=== PATIENT | male | born 1990 | race Two or more races ===

== ENCOUNTER 2017-04-03 01:19 | Emergency (ER) | payer SELFPAY ==
[2017-04-03 01:34] VITALS: BP 126/80
[2017-04-03] MEDS ORDERED: diphenhydrAMINE 25 MG Tab PO ONE (02:38)
--- NOTE | 2017-04-03 02:41 | EDM.PDOC ---
ED HPI GENERAL MEDICAL PROBLEM - General Chief Complaint: Eye Problems Stated Complaint: FACE AND EYES SWOLLEN [id number] Time Seen by Provider: 04/03/17 02:35 Source of Information: Reports: Patient History Limitations: Reports: No Limitations - History of Present Illness INITIAL COMMENTS - FREE TEXT/NARRATIVE: C/O eyes and face itching after home from being at [employer]. Denies other symptoms. 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 Constitutional: Reports: No Symptoms HEENT: Reports: Eye Pain (itching) Respiratory: Reports: No Symptoms Cardiovascular: Reports: No Symptoms GI/Abdominal: Reports: No Symptoms Skin: Reports: Pruritis (face and eyes) Neurological: Reports: No Symptoms ED EXAM GENERAL W FULL EYE - Physical Exam Exam: See Below Exam Limited By: No Limitations General Appearance: Alert, No Apparent Distress Eye Exam: Bilateral Eye: EOMI, PERRL Eyelids: Bilateral: Normal Appearance Conjunctiva & Sclera: Bilateral: Injected (mild) Extraocular Movements: Bilateral: Intact Pupils: Normal Accommodation Pupillary Size: Bilateral: 4 mm Ears: Normal External Exam Nose: Normal Inspection Throat/Mouth: Normal Inspection Head: Atraumatic, Normocephalic Neck: Normal Inspection Respiratory/Chest: No Respiratory Distress, Lungs Clear Cardiovascular: Normal Peripheral Pulses, Regular Rate, Rhythm Extremities: Normal Inspection Neurological: Alert, Oriented, Normal Cognition Psychiatric: Normal Affect Skin Exam: Warm, Dry, Intact, Other (face flushed) Course - Vital Signs Last Recorded V/S: Last Vital Signs Temp 99.6 F 04/03/17 01:32 Pulse 84 04/03/17 01:32 Resp 16 04/03/17 01:32 BP 126/80 04/03/17 01:32 Pulse Ox 100 04/03/17 01:32 - Orders/Labs/Meds Meds: Medications Discontinued Medications Generic Name Dose Route Start Last Admin Trade Name Freq PRN Reason Stop Dose Admin Diphenhydramine HCl 25 mg 04/03/17 02:38 04/03/17 02:44 Benadryl PO 04/03/17 02:39 25 mg ONETIME ONE Administration Departure - Departure Time of Disposition: 02:39 Disposition: Home, Self-Care 01 Condition: Good Clinical Impression: Allergic reaction Qualifiers: Encounter type: initial encounter Qualified Code(s): T78.40XA - Allergy, unspecified, initial encounter - Discharge Information Instructions: Allergies, [id number] Forms: ED Department Discharge Additional Instructions: shower and flush eyes benadryl 25mg one every 4 hours as needed for itching moisturizing eye drops follow up if symptoms worsen
== END 2017-04-03 02:46 | disposition home or self-care (01) ==
LOC: DL.ED 01:19
DX: T78.40XA Allergy, unspecified, initial encounter (principal); F17.210 Nicotine dependence, cigarettes, uncomplicated
CPT/HCPCS: 99283; A9270